=== PATIENT | male | born 1975 | race Caucasian/White ===

== ENCOUNTER 2019-02-24 18:15 | Emergency (ER) | payer MEDICARE, MEDICAID, SELFPAY ==
[2019-02-24 18:25] VITALS: BP 125/86; PULSE 84; RESP 16; TEMP 36.8; O2SAT 100; BMI 26.4
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
[2019-02-24] MEDS: KETOROLAC 60 MG/2 ML VIAL IM (18:51)
[2019-02-24] MEDS: diazePAM 5 MG TABLET PO ×2 (18:52→19:46)
--- NOTE | 2019-02-24 19:30 | DI.RAD.S_ITS ---
PROCEDURE: XR LUMBAR SPINE 2-3V INDICATIONS: low back pain TECHNIQUE: 3 views of the lumbar spine were acquired. COMPARISON: None. FINDINGS: Bones: 5 [id number] vertebrae are present. There is normal bony alignment. The mild posterior endplate spurring at L5. No vertebral body compression fractures. No suspicious bony lesions. Soft tissues: Overlying bowel gas pattern is normal. No suspicious soft tissue calcifications. IMPRESSION: Mild endplate spurring at L5 may cause central canal narrowing. Otherwise normal lumbar spine. Dictated by: Katerine Cox M.D. on 02/24/2019 at 20:18 Approved by: Katerine Cox M.D. on 02/24/2019 at 20:19
[2019-02-24] MEDS: HYDROCODONE/ACET 5/325 TABLET 1 TAB PO ×2 (19:46→21:10)
[2019-02-24 20:28] VITALS: BP 111/70; PULSE 69; RESP 16; O2SAT 98
[2019-02-24] MEDS: predniSONE 20 MG TABLET 40 MG PO (21:10)
[2019-02-24] MEDS: HYDROCODONE/ACET 5/325 PREPACK 1 BOTTLE MISC (21:10)
[2019-02-24 21:44] VITALS: BP 115/76; PULSE 71; RESP 16; O2SAT 97
== END 2019-02-24 19:44 | disposition home or self-care (01) ==
PROVIDERS: Emergency Provider Nurse Practitioner Family
DX: M54.41 Lumbago with sciatica, right side (principal)
CPT/HCPCS: 72100; 96372; 99282; 99283; J1885